=== PATIENT | female | born 1980 | race American Indian/Alaskan Native ===

== ENCOUNTER 2018-08-31 09:59 | Emergency (ER) | payer SELFPAY ==
[2018-08-31 10:08] VITALS: BP 105/42
[2018-08-31] MEDS ORDERED: DECADRON IM ONE (10:56)
--- NOTE | 2018-08-31 10:56 | Emergency Department Report ---
Minor Respiratory - HPI Chief Complaint: Sore Throat Stated Complaint: SORE THROAT Time Seen by Provider: 08/31/18 10:51 Pain Location: Throat Severity: mild Minor Respiratory: Yes Sore Throat, Yes Able to Tolerate Fluids, No Rhinorrhea, No Ear Pain, No Cough, No Sick Contacts, No Hemoptysis, No Chest Pain, No Shortness of Breath, No Fever Other History: 38 YO WITH SORE THROAT AND NO FEVER. NO COUGH. STATES RECENT DX BRONCHITIS BUT NO BETTER. NON TOXIC. ABC INTACT. TAKING PO ED Review of Systems ROS: Stated complaint: SORE THROAT Other details as noted in HPI Comment: All other systems reviewed and negative Constitutional: denies: chills, fever ENT: as per HPI, throat pain ED Past Medical Hx - Past Medical History Hx Seizures: Yes Additional medical history: Thrombocytopenia(with history of platelet transfusion) - Surgical History Past Surgical History?: No - Family History Family history: no significant - Social History Smoking Status: Never Smoker Substance Use Type: None - Medications Home Medications: Home Medications Medication Instructions Recorded Confirmed Last Taken Type Amoxicillin [Trimox CAP] 500 mg PO BID #20 capsule 08/31/18 Unknown Rx Minor Respiratory Exam - Exam General: Vital signs noted. No distress. Alert and acting appropriately. HEENT: Yes Pharyngeal Erythema, Yes Moist Mucous Membranes, No Pharyngeal Exudates, No Rhinorrhea, No Conjuctival Injection, No Frontal Tenderness, No Maxillary Tenderness Ear: Neither TM Bulge, Neither TM Erythema, Neither EAC Pain, Neither EAC Discharge Neck: Yes Supple, No Adenopathy Lungs: Yes Good Air Exchange, No Wheezes, No Ronchi, No Stridor, No Cough, No Labored Respirations, No Retractions, No Use of Accessory Muscles, No Other Abnormal Lung Sounds Heart: Yes Regular, No Murmur Abdomen: Yes Normal Bowel Sounds, No Tenderness, No Peritoneal Signs Skin: No Rash, No Edema Neurologic: Alert and oriented, no deficits. Musculoskeletal: Unremarkable. ED Course Vital Signs 08/31/18 10:07 Temperature 98.4 F Pulse Rate 85 Respiratory 19 Rate Blood Pressure 105/42 [Left] O2 Sat by Pulse 99 Oximetry ED Medical Decision Making - Medical Decision Making Vital Signs (72 hours) 08/31/18 10:07 Temperature 98.4 F Pulse Rate 85 Respiratory 19 Rate Blood Pressure 105/42 [Left] O2 Sat by Pulse 99 Oximetry TAKING PO ABC INTACT NO FEVER NO ABSCESS DC HOME ON AMOX WITH FOLLOW UP Critical care attestation.: If time is entered above; I have spent that time in minutes in the direct care of this critically ill patient, excluding procedure time. ED Disposition Clinical Impression: Pharyngitis, Uvulitis Disposition: DC-01 TO HOME OR SELFCARE Is pt being admited?: No Does the pt Need Aspirin: No Condition: Stable Instructions: Pharyngitis (ED) Additional Instructions: MED ORDERED TODAY HYDRATE WELL WITH WATER MOTRIN OR TYLENOL FOR FEVER OR PAIN FOLLOW UP PCP REFERRAL BELOW Prescriptions: Amoxicillin [Trimox CAP] 500 mg PO BID #20 capsule Referrals: KAI SANDERS MD [Primary Care Provider] - 3-5 Days Time of Disposition: 10:57
== END 2018-08-31 11:11 | disposition home or self-care (01) ==
LOC: ED 09:59
DX: J02.9 Acute pharyngitis, unspecified (principal); K12.2 Cellulitis and abscess of mouth
CPT/HCPCS: 96372; 99282; J1100

== ENCOUNTER 2018-11-29 20:37 | Emergency (ER) | payer OTHER ==
[2018-11-30] MEDS ORDERED: NORCO 5/325 PO STA (00:29)
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
[2018-11-30 02:27] VITALS: BP 119/63
== END 2018-11-30 02:26 | disposition home or self-care (01) ==
LOC: ED 20:37
DX: S96.912A Strain of unspecified muscle and tendon at ankle and foot level, left foot, initial encounter (principal); S96.911A Strain of unspecified muscle and tendon at ankle and foot level, right foot, initial encounter; S16.1XXA Strain of muscle, fascia and tendon at neck level, initial encounter; M54.5 Low back pain; D69.6 Thrombocytopenia, unspecified; Z87.891 Personal history of nicotine dependence; V49.9XXA Car occupant (driver) (passenger) injured in unspecified traffic accident, initial encounter; Y93.89 Activity, other specified; Y92.488 Other paved roadways as the place of occurrence of the external cause; Y99.8 Other external cause status
CPT/HCPCS: 72040; 72100; 99283